=== PATIENT | female | born 1980 | race Caucasian/White ===

== ENCOUNTER 2023-12-09 10:05 | Emergency (ER) | payer OTHER, SELFPAY ==
[2023-12-09 10:07] VITALS: BP 145/101; PULSE 105; TEMP 36.9; O2SAT 100; BMI 19.9
--- NOTE | 2023-12-09 10:53 | ED_ITS ---
HPI HPI - Neck Pain/Injury General Chief Complaint: Back Pain/Injury Stated Complaint: neck pain Time Seen by Provider: 12/09/23 10:16 Source: patient Mode of arrival: walk-in History of Present Illness HPI Narrative: Patient complains of increasing pain along the left posterior neck into the left posterior shoulder - she points to the left trapezius. No known injury. No relief with OTC meds. Pain is worse with movement of the neck to the left and movement of the left shoulder. Related Data Previous Rx's ?Medication ?Instructions ?Recorded methocarbamol 750 mg tablet 750 mg PO Q6H PRN pain #30 tabs 12/09/23 nabumetone 750 mg tablet 750 mg PO BID PRN pain #14 tabs 12/09/23 Allergies Allergy/AdvReac Type Severity Reaction Status Date / Time codeine Allergy Verified 12/09/23 10:12 penicillin G Allergy Verified 12/09/23 10:12 Opioid HPI Opioid Management Most Recent Opioid Data: No Data to Display Exam Narrative Exam Narrative: Nurses notes and vital signs reviewed and patient is not hypoxic. afebrile General: Well-appearing and in no apparent distress. Skin: Warm, dry, no pallor noted. No rash. Head: Normocephalic, atraumatic. Neck: Supple, no cervical lymphadenopathy. No meningismus. She is tender along the posterolateral aspect of the left neck into the superior aspect of the left trapezius. Cardiovascular: Regular Rate and Rhythm without murmur, gallop or rub. Respiratory: No accessory muscle use or respiratory distress. Lungs are clear to auscultation, no wheezing, rales or rhonchi Back: No midline thoracic or lumbar vertebral tenderness. No Left scapular tenderness Musculoskeletal: normal ROM Neurological: A&O x4. No cranial nerve dysfunction observed. No truncal at axia. Moves all extremities. Sensation intact. Psychiatric: Cooperative and interactive. Normal mood and affect. Constitutional Vital Signs, click to edit/add: Last Vital Signs Temp 98.5 F 12/09/23 10:07 Pulse 105 H 12/09/23 10:07 Resp 18 12/09/23 10:07 BP 145/101 H 12/09/23 10:07 Pulse Ox 100 12/09/23 10:07 Course Vital Signs Vital signs: Vital Signs Temperature 98.5 F 12/09/23 10:07 Pulse Rate 105 H 12/09/23 10:07 Respiratory Rate 18 12/09/23 10:07 Blood Pressure 145/101 H 12/09/23 10:07 Pulse Oximetry 100 12/09/23 10:07 Temperature 98.5 F 12/09/23 10:07 Pulse Rate 105 H 12/09/23 10:07 Respiratory Rate 18 12/09/23 10:07 Blood Pressure 145/101 H 12/09/23 10:07 Pulse Oximetry 100 12/09/23 10:07 MDM - Neck Pain/Injury MDM Narrative Medical decision making narrative: No trauma or etiology that necessitates imaging at this time. Patient's exam is consistent with torticollis. Patient ordered to receive IM injections of Solu- Medrol and Toradol. She was discharged home with prescriptions for Relafen and Robaxin. 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 She does not have a local primary care physician for follow-up so we gave her a list of providers in the area taking new patients. Discharge Plan Discharge Stand Alone Forms: Portal Instructions Chief Complaint: Back Pain/Injury Clinical Impression: Acute torticollis, Acute neck pain Patient Disposition: Home, Self-Care Time of Disposition Decision: 10:57 Prescriptions / Home Meds: New nabumetone 750 mg tablet 750 mg PO BID PRN (Reason: pain) Qty: 14 0RF methocarbamol 750 mg tablet 750 mg PO Q6H PRN (Reason: pain) Qty: 30 0RF Print Language: Bhutanese Instructions: Spasmodic Torticollis (ED), Acute Neck Pain (ED) Referrals: Physician,Non-Staff, MD [Primary Care Provider] - 1 week
[2023-12-09] MEDS: KETOROLAC TROMETHAMINE 60 MG/2 ML VIAL IM (11:06)
[2023-12-09] MEDS: METHYLPREDNISOLONE SOD SUCC PF 125 MG/2 ML VIAL IM (11:06)
== END 2023-12-09 11:14 | disposition home or self-care (01) ==
PROVIDERS: Emergency Provider Emergency Medicine
DX: M43.6 Torticollis (principal); M54.2 Cervicalgia
CPT/HCPCS: 96372; 99284; J2919